=== PATIENT | male | born 1985 | race Caucasian/White ===

== ENCOUNTER 2022-08-31 08:52 | Emergency (ER) | payer OTHER, SELFPAY ==
[2022-08-31 09:02] VITALS: BP 140/106; PULSE 94; RESP 16; TEMP 36.6; O2SAT 96; BMI 29.5
--- NOTE | 2022-08-31 09:05 | W.ED.EYEPROB ---
HPI - Eye Problem General: Chief complaint: Eye Problems Stated complaint: eye problems, WC Time Seen by Provider: 08/31/22 08:54 Source: patient Mode of arrival: ambulatory Limitations: no limitations History of Present Illness: Patient is a 37-year-old male who presents to ED today with complaint of right eye discomfort. Patient tells me while at work yesterday he began feeling a scratchy sensation to the eye believed he might have gotten something in it. 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 He states he began rubbing the eye. He states this morning he woke up and eye was red and a little swollen. He states he has a little discomfort but nothing that he describes as pain. No painful eye movements. States he intermittently will have a foreign body sensation. No visual changes or visual loss. No systemic symptoms. chief complaint: eye redness and foreign body (possibly) Onset (ago): day(s) (yesterday while at work) Onset description: sudden Duration: intermittent Location: right eye Eye Symptoms: redness, foreign body sensation and discharge (states eye was matted this morning) Place: work Severity: mild Associated symptoms: Reports no associated symptoms Treatments Prior to Arrival: irrigated eye Related Data: Patient tetanus UTD: No Review of Systems Eyes: Reports: eye discomfort, eye discharge (this morning he states eye was matted) and eye redness; Denies: change in vision, blurry vision, blind spots, photophobia, floaters or seeing flashes Physical Exam Const: COMMON NORMALS: no acute distress, average body habitus, patient oriented x3, no limitations, healthy appearing, alert and well nourished HENMT: FACE & SINUS: normal facial exam Eye: COMMON NORMALS: Equal, round and reactive pupils present, EOMs intact bilaterally, no scleral icterus and normal visual pierre by confrontation GENERAL EYE: normal light reflex VISUAL ACUITY: Yes acuity normal VISUAL PIERRE: No peripheral vision loss and No central vision loss ALIGNMENT: Yes alignment normal PERIORBITAL: periorbital findings abnormal (mild swelling that he states is probably from him rubbing eye) positive right EYELID: eyelids normal CONJUNCTIVA: Yes conjunctival abnormal positive right conjunctival injection SCLERA: sclerae normal CORNEA: Yes fluorescein used (small linear abrasion at roughly 6-7 o'clock on cornea) PUPIL: Yes Equal, round and reactive pupils present DIRECT OPHTHALMOSCOPY: Yes normal light reflex EYE IMAGES: 1. small linear abrasion Neuro: COMMON NORMALS: patient oriented x3 SENSORIUM/ORIENTATION: Yes alert Course Vital Signs: Vital signs: Vital Signs Temperature 97.8 F 08/31/22 09:02 Pulse Rate 94 08/31/22 09:02 Respiratory Rate 16 08/31/22 09:02 Blood Pressure 140/106 08/31/22 09:02 Pulse Oximetry 96 08/31/22 09:02 Oxygen Delivery Me thod Room Air 08/31/22 09:02 MDM - Eye Problem Medical Decision Making No foreign body noted but he does have a linear abrasion to the inferior aspect of his cornea. He will be treated with erythromycin ointment. Tetanus updated. He will follow-up with Worker's Comp. Strict return ED precautions given. Discharge Plan Discharge Patient Disposition: Home Clinical Impression: Corneal abrasion Condition: Stable Prescriptions: New erythromycin 5 mg/gram (0.5 %) ointment 1 applic ophthalmic (eye) Q4H 7 Days Qty: 1 0RF Discharge Orders: Discharge ED (Routine); Ordered 08/31/22 Ordered By: Ladi Luu Patient Instructions: Corneal Abrasion (DC) Activity Restrictions/Additional Instructions: As we discussed please follow-up with Worker's Comp. as directed. You need to return to the emergency department for severe eye pain, significant swelling around the eye, visual changes or visual loss, fevers, or any other concerns you may have. Coding Level of Care Code ED Equipment Associate for Merlene Mims
[2022-08-31] MEDS: tetanus-dipt-pertussis 0.5 mL SDV IM (10:14)
[2022-08-31] MEDS: erythromycin Op Oint 1 gm 1 APPLIC EYE-RIGHT (10:17)
[2022-08-31] MEDS: tetracaine 0.5% Op Soln 4 mL Btl 1 DROP EYE-RIGHT (10:18)
[2022-08-31] MEDS: fluorescein 1 mg Strip EYE-RIGHT (10:18)
[2022-08-31] MEDS: eye irrigation 30 mL Btl EYE-RIGHT (10:18)
[2022-08-31 10:30] VITALS: BP 140/106; PULSE 94; RESP 16; TEMP 36.6; O2SAT 96
--- NOTE | 2022-09-05 14:44 | DCPLANNER ---
TCM called patient due to no primary care physician - patient declines at this time.
== END 2022-08-31 10:31 | disposition home or self-care (01) ==
PROVIDERS: Emergency Provider Physician Assistant
DX: S05.01XA Injury of conjunctiva and corneal abrasion without foreign body, right eye, initial encounter (principal); X58.XXXA Exposure to other specified factors, initial encounter
CPT/HCPCS: 90471; 90715; 99283